=== PATIENT | male | born 1985 | race Caucasian/White ===

== ENCOUNTER 2016-09-17 14:16 | Emergency (ER) | payer OTHER ==
[~2016-09-17] VITALS: Ht 177.8 cm; Wt 123.4 kg
[~2016-09-17 14:16] MED LIST: ALLP100T PO; CYCL10TA45 PO; HYDR-3714 PO; LSNP20T PO; PRD20T PO; PRED20TA PO
[2016-09-17] MEDS ORDERED: NAPR220C46 PO (14:29)
[2016-09-17] MEDS ORDERED: HYDROcodone/APAP 7.5 MG/325 MG (LORTAB, LORCET PLUS) TABLET PO STA (15:12)
[2016-09-17] MEDS ORDERED: CYCLOBENZAPRINE 10 MG (FLEXERIL) TAB PO STA (15:12)
--- NOTE | 2016-09-17 15:21 | ED Back Pain ---
General Chief Complaint: Back Problems Stated Complaint: BACK PAIN Nursing Triage Note: patient reports back pain x 1.5 hours. denies injury or taking medication for pain Nursing Sepsis Screen: No Definite Risk History of Present Illness Time Seen by Provider: 15:00 Initial Comments Evaluation for acute onset of right lumbar back pain. The patient reports having similar symptoms approximately 2 years ago, he was evaluated here and had a CT scan that he done that showed disc changes at L5-S1. The patient reports no chronic problems with his low back. He denies any injury at the onset of his symptoms today. He denies any urinary or bowel incontinence or retention. Timing/Duration: 1-3 Hours Severity: Moderate (pain 7 out of 10) Pain/Injury Location: Back Method of Injury: Unknown Modifying Factors: Improves With Rest (and leaning to the left side) Associated Symptoms: muscle spasms, No numbness in legs/feet, No tingling in legs/feet, No sensory/motor loss, lower back pain, No loss of bladder control, No loss of bowel control Allergies and Home Medications Allergies Coded Allergies: No Known Drug Allergies (Unverified , 05/18/12) Home Medications Allopurinol 100 Mg Tab, 100 MG PO DAILY, (Reported) Cyclobenzaprine HCl 10 Mg Tablet, 10 MG PO Q8H PRN for SPASMS, #15 Ref 0 Prescribed by: ROMEO GARIBAY on 09/17/16 160 Hydrocodone/Acetaminophen 1 Each Tablet, 1 EACH PO Q6H PRN for PAIN, #12 Ref 0 Prescribed by: ROMEO GARIBAY on 09/17/161602 Lisinopril 20 Mg Tab, 20 MG PO DAILY, (Reported) Naproxen Sodium 220 Mg Capsule, 440 MG PO BID, (Reported) Prednisone 10 Mg Tab.ds.pk, 10 MG PO DAILY, #21 Take 6 tabs(60mg)daily,decrease by 1 tab(10MG)daily. Prescribed by: ROMEO GARIBAY on 09/17/161602 Constitutional: no symptoms reported, see HPI EENTM: no symptoms reported, see HPI Respiratory: no symptoms reported, see HPI Cardiovascular: no symptoms reported, see HPI Gastrointestinal: no symptoms reported, see HPI Genitourinary: no symptoms reported, see HPI Musculoskeletal: see HPI, back pain Skin: no symptoms reported, see HPI Psychiatric/Neurological: No Symptoms Reported, See HPI All Other Systems Reviewed Negative Unless Noted: Yes Past Yugeehb-Ngjrxh-Gvvyud Hx Patient Social History Alcohol Use: Rarely Uses Recreational Drug Use: No Smoking Status: Never a Smoker Type Used: Smokeless Tobacco Recent Foreign Travel: No Contact w/Someone Who Travel: No Recent Infectious Disease Expo: No Recent Hopitalizations: No Surgeries HX Surgeries: Yes (DENTAL) Respiratory Hx Respiratory Disorders: No Cardiovascular Hx Cardiac Disorders: Yes Cardiac Disorders: Hypertension Neurological Hx Neurological Disorders: No Genitourinary Hx Genitourinary Disorders: No Gastrointestinal Hx Gastrointestinal Disorders: No Musculoskeletal Hx Musculoskeletal Disorders: Yes Musculoskeletal Disorders: Gout Endocrine Hx Endocrine Disorders: No HEENT HX ENT Disorders: No Cancer Hx Cancer: No Family Medical History Significant Family History: No Pertinent Family Hx Physical Exam Vital Signs Vital Sign - Last 12Hours 09/17/16 14:27 Temp 98.2 Pulse 100 Resp 18 B/P (MAP) 112/85 Pulse Ox 92 Capillary Refill : Less Than 3 Seconds General Appearance: No Apparent Distress, WD/WN HEENT: PERRL/EOMI, TMs Normal, Normal ENT Inspection, Pharynx Normal Neck: Full Range of Motion, Normal Inspection, Non Tender, Supple Cardiovascular: Regular Rate, Rhythm, No Murmur, Normal Peripheral Pulses Respiratory: Chest Non Tender, Lungs Clear, Normal Breath Sounds Gastrointestinal: Normal Bowel Sounds, No Organomegaly, No Pulsatile Mass, Non Tender, Soft Back: Normal Inspection, No CVA Tenderness, Decreased Range of Motion, Muscle Spasm, Vertebral Tenderness (lower lumbar on the right side), Other (power V/V L4 to S1, positive straight leg raising sign on the right, Negative on the left.) Extremity: Normal Capillary Refill, Normal Inspection, Normal Range of Motion, Non Tender, No Calf Tenderness, No Pedal Edema Neurologic/Psychiatric: Alert, Oriented x3, No Motor/Sensory Deficits, Normal Mood/Affect Skin: Normal Color, Warm/Dry Lymphatic: No Adenopathy Progress/Results/Core Measures Results/Orders My Orders Orders - ROMEO GARIBAY Cyclobenzaprine Tablet (Flexeril Tablet) (09/17/16 15:12) Hydrocodone/Apap 7.5/325 Tab (Lortab 7. (09/17/16 15:12) Vital Signs/I&O Vital Sign - Last 12Hours 09/17/16 09/17/16 14:27 16:16 Temp 98.2 98.2 Pulse 100 100 Resp 18 18 B/P (MAP) 112/85 Pulse Ox 92 92 Blood Pressure Mean: 94 Progress Note : Time: 16:00 Progress Note Patient reports improved pain since taking the Flexeril and Lortab. Discussed plans for discharge to home, patient agreed with this. Departure Impression Impression: Primary Impression: Lumbar radiculopathy Additional Impression: Lumbar back pain Qualified Codes: M54.5 - Low back pain Departure-Patient Inst. Decision time for Depature: 15:20 Referrals: OVIDIO HDZ MD (PCP/Family) Primary Care Physician Patient Instructions: Low Back Pain (DC) Add. Discharge Instructions: All discharge instructions reviewed with patient and/or family. Voiced understanding. Rest for the back, no twisting or lifting. Return to emergency department for worsening symptoms, numbness or tingling in the lower extremities, bowel or bladder changes, or any new complaints. Scripts Hydrocodone/Acetaminophen (Hydrocodon -Acetaminophen 5-325) 1 Each Tablet 1 EACH PO Q6H Y for PAIN, #12 TAB 0 Refills Prov: ROMEO GARIBAY 09/17/16 Cyclobenzaprine HCl (Cyclobenzaprine HCl) 10 Mg Tablet 10 MG PO Q8H Y for SPASMS, #15 TAB 0 Refills Prov: ROMEO GARIBAY 09/17/16 Prednisone (Prednisone) 10 Mg Tab.ds.pk 10 MG PO DAILY, #21 PKG Take 6 tabs(60mg)daily,decrease by 1 tab(10MG)daily. Prov: ROMEO GARIBAY 09/17/16 Work/School Note: Work Release Form Date Seen in the Emergency Department: Sep 17, 2016 Return to Work: Sep 21, 2016 Restrictions: No Restrictions Copy Copies To 1: OVIDIO HDZ MD, AMY ARNP Sep 17, 2016 15:21
[2016-09-17] MEDS ORDERED: PRED10TA22 PO (16:03)
[2016-09-17] MEDS ORDERED: HYDR-3812 PO (16:03)
[2016-09-17] MEDS ORDERED: CYCL10TA9 PO (16:03)
[2016-09-17 16:16] VITALS: BP 112/85
== END 2016-09-17 16:16 | disposition home or self-care (01) ==
LOC: EDUNIT# 14:16 → ER 14:19
DX: M54.16 Radiculopathy, lumbar region (principal); I10 Essential (primary) hypertension
CPT/HCPCS: 99281

== ENCOUNTER 2020-08-15 19:15 | Emergency (ER) | payer SELFPAY ==
[~2020-08-15] VITALS: Ht 175.3 cm; Wt 136.1 kg
[~2020-08-15 19:15] MED LIST changes: +ACHD5005 PO; +CYCL10TA9 PO; +NAPR220C61 PO; +PRED10TA22 PO
--- NOTE | 2020-08-15 19:50 | ED Respiratory ---
General Stated Complaint: LOSS OF TASTE AND SMELL History of Present Illness Date Seen by Provider: Aug 15, 2020 Time Seen by Provider: 19:30 Initial Comments 35-year-old male presents for loss of taste and smell that occurred at dinner tonight. He states he has had some respiratory congestion and cough for a day or 2 but he associated it with the wind and allergies. He has no known exposure to COVID-19 and has not been tested previously. He denies any recent fevers, shortness of air, or chest pain. He reports normal appetite and activity level. No other complaints at this time. He did not receive a flu vaccine or the Covid vaccine. Timing/Duration: just prior to arrival Severity: mild Associated Symptoms: denies symptoms Allergies and Home Medications Allergies Coded Allergies: No Known Drug Allergies (Unverified , 05/18/12) Home Medications Allopurinol 100 Mg Tab, 100 MG PO DAILY, (Reported) Cyclobenzaprine HCl 10 Mg Tablet, 10 MG PO Q8H PRN for SPASMS Prescribed by: ROMEO GARIBAY on 09/17/16 1603 Hydrocodone Bit/Acetaminophen 1 Each Tablet, 1 EACH PO Q6H PRN for PAIN Prescribed by: ROMEO GARIBAY on 09/17/16 1603 Lisinopril 20 Mg Tab, 20 MG PO DAILY, (Reported) Naproxen Sodium 220 Mg Capsule, 440 MG PO BID, (Reported) Prednisone 10 Mg Tab.ds.pk, 10 MG PO DAILY Take 6 tabs(60mg)daily,decrease by 1 tab(10MG)daily. Prescribed by: ROMEO GARIBAY on 09/17/16 1603 Patient Home Medication List Home Medication List Reviewed: Yes Review of Systems Review of Systems Constitutional: no symptoms reported, see HPI EENTM: see HPI, other (Loss of taste and smell) Respiratory: see HPI, cough; No dyspnea on exertion, No short of breath Cardiovascular: no symptoms reported, see HPI; No chest pain Gastrointestinal: no symptoms reported, see HPI Genitourinary: no symptoms reported, see HPI All Other Systems Reviewed Negative Unless Noted: Yes Past Crcibqr-Urtyfe-Utojen Hx Past Med/Social Hx: Reviewed Nursing Past Med/Soc Hx Patient Social History Type Used: Smokeless Tobacco Recent Hopitalizations: No Past Medical History Hypertension Gout Family Medical History No Pertinent Family Hx Physical Exam Vital Signs - First Documented 08/15/20 19:30 Temp 36.7 Pulse 84 Resp 18 B/P (MAP) 132/94 (107) Pulse Ox 98 O2 Delivery Room Air Capillary Refill : Height: 5'10" Weight: 272lbs. oz. 123.523876bp; 39.02 BMI Method:Stated General Appearance: WD/WN, no apparent distress, obese Eyes: Bilateral Eye Normal Inspection, Bilateral Eye PERRL, Bilateral Eye EOMI HEENT: PERRL/EOMI, normal ENT inspection, TMs normal, pharynx normal Neck: non-tender, full range of motion, supple, normal inspection Respiratory: chest non-tender, lungs clear, normal breath sounds, no respiratory distress, no accessory muscle use Cardiovascular: normal peripheral pulses, regular rate, rhythm, no edema Gastrointestinal: normal bowel sounds, non tender, soft Neurologic/Psychiatric: no motor/sensory deficits, alert, normal mood/affect, oriented x 3 Skin: normal color, warm/dry Progress/Results/Core Measures Suspected Sepsis SIRS Temperature: Pulse: Respiratory Rate: Blood Pressure / Mean: Results/Orders Lab Results Laboratory Tests Test 08/15/20 19:30 Range/Units Coronavirus 2018 ([facility]USSEL) Positive H Negative Micro Results Microbiology 08/15/20 Influenza Types A,B Antigen (YAMIL) - Final, Complete My Orders Orders - ROMEO GARIBAY Influenza A And B Antigens (08/15/20 19:44) Coronavirus Sars-Cov-2 So 2018 (08/15/20 19:44) Covid 19 Inhouse Test (08/15/20 19:44) Rx-Oseltamivir Caps (Rx-Tamiflu Caps) (08/15/20 20:19) Vital Signs/I&O 08/15/20 08/15/20 19:30 19:30 Temp 36.7 Pulse 84 Resp 18 B/P (MAP) 132/94 (107) Pulse Ox 98 O2 Delivery Room Air Room Air Capillary Refill : Progress Note : Time: 19:30 Progress Note Patient seen and evaluated, will obtain Covid and flu testing. No other requests at this time. Patient is afebrile. 2020 patient is positive for COVID-19 and influenza B. Discharge instructions and return precautions reviewed with the patient in detail. All questions answered. Departure Impression Primary Impression: COVID-19 Additional Impression: Influenza B Disposition: 01 HOME, SELF-CARE Condition: Stable Departure-Patient Inst. Decision time for Depature: 20:20 Referrals: OVIDIO HDZ MD (PCP/Family) Primary Care Physician Patient Instructions: Coronavirus Disease 2019 (COVID-19) ED, Flu, Adult (DC) Add. Discharge Instructions: Increase water intake, 16 ounces every 2 hours while awake. Take Tamiflu as directed. You need to stay home and isolate from others until the health department releases you. Notify anyone that you have been in contact with for the last 48 hours to quarantine until they have been contacted by the health department. Take an immune vitamin daily, that has Vit C, D, and Zinc. Take an Aspirin 81 mg daily. Walk around and move frequently. Sleep on your stomach. Call your family doctor, if symptoms are not improving or worsen. Return to the emergency department for new, urgent healthcare needs. Work/School Note: Work Release Form Date Seen in the Emergency Department: Aug 15, 2020 Other Restrictions Listed Below: Return to work per Health Dept. Copy Copies To 1: OVIDIO HDZ MD LANIROMEO Ahmadi Aug 15, 2020 19:50
[2020-08-15] MEDS ORDERED: RX-OSELTAMIVIR 75 MG (TAMIFLU) BOX OF 10 PO STA (20:19)
[2020-08-15 20:45] VITALS: BP 135/93
== END 2020-08-15 20:45 | disposition home or self-care (01) ==
LOC: EDUNIT# 19:15 → ER 19:17
DX: U07.1 COVID-19 (principal); J10.1 Influenza due to other identified influenza virus with other respiratory manifestations; I10 Essential (primary) hypertension; M10.9 Gout, unspecified; Z79.52 Long term (current) use of systemic steroids
CPT/HCPCS: 87804; 99282; U0002; 87635

== ENCOUNTER 2022-07-22 12:15 | Emergency (ER) | payer SELFPAY ==
[~2022-07-22] VITALS: Ht 175 cm; Wt 156.0 kg
[~2022-07-22 12:15] MED LIST changes: +CYCL10TA25 PO; -CYCL10TA9 PO
--- NOTE | 2022-07-22 12:35 | ED General ---
General Chief Complaint: Allergic Reaction Stated Complaint: ALLERGIC REACTION Nursing Triage Note: PT ARRIVED PER EMS, PT RECIEVED SOLUMEDROL 125MG AND BENADRYL 50MG IV. PT CO OF SWELLING OF HANDS AND TONGUE. IMPROVED SINCE MEDS GIVEN BY EMS. PT WAS SEEN AT [facility] IN [place]. PT HAS SL IN [facility] BY EMS. NO RESP DISTESS NOTED. PT STATES FEELING BETTER Source of Information: Patient Exam Limitations: No Limitations History of Present Illness Date Seen by Provider: Jul 22, 2022 Time Seen by Provider: 12:34 Timing/Duration: 1 Hour Severity: Severe Associated Systoms: Other (change in speech) Allergies and Home Medications Allergies Coded Allergies: No Known Drug Allergies (Unverified , 05/18/12) Patient Home Medication List Allopurinol (Zyloprim) 100 Mg Tab, 100 MG PO DAILY, (Reported) Entered as Reported by: RENARD MADIRD on 05/18/12 1630 Cyclobenzaprine HCl (Cyclobenzaprine HCl) 10 Mg Tablet, 10 MG PO Q8H PRN for SPASMS Prescribed by: ROMEO GARIBAY on 09/17/16 1603 Hydrocodone Bit/Acetaminophen (Lortab 5 Mg Tablet) 1 Each Tablet, 1 EACH PO Q6H PRN for PAIN Prescribed by: ROMEO GARIBAY on 09/17/16 1603 Lisinopril (Zestril) 20 Mg Tab, 20 MG PO DAILY, (Reported) Entered as Reported by: RENARD MADRID on 05/18/12 1630 Naproxen Sodium (Naproxen Sodium) 220 Mg Capsule, 440 MG PO BID, (Reported) Entered as Reported by: MUSA SPRAGUE on 09/17/16 1429 Prednisone (Prednisone) 10 Mg Tab.ds.pk, 10 MG PO DAILY Prescribed by: ROMEO GARIBAY on 09/17/16 1603 Review of Systems Review of Systems Constitutional: see HPI EENTM: other (mouth and tongue swelling; voice change) Respiratory: no symptoms reported Cardiovascular: no symptoms reported Gastrointestinal: no symptoms reported Genitourinary: no symptoms reported All Other Systems Reviewed Negative Unless Noted: Yes Past Dujwsey-Xrpmov-Quqokx Hx Patient Social History Tobacco Use?: No Use of E-Cig and/or Vaping dev: No Substance use?: No Alcohol Use?: No Pt feels they are or have been: No Past Medical History Surgery/Hospitalization HX: HTN, GOUT Surgeries: Yes (DENTAL) Respiratory: No Cardiac: Yes Hypertension Neurological: No Gastrointestinal: No Musculoskeletal: Yes Gout Endocrine: No Cancer: No Family Medical History No Pertinent Family Hx Physical Exam Vital Signs Vital Signs - First Documented 07/22/22 12:20 Temp 36.8 Pulse 105 Resp 18 B/P (MAP) 181/110 (133) Pulse Ox 99 Capillary Refill : Height, Weight, BMI Height: 5'10" Weight: 272lbs. oz. 123.719007gc; 50.00 BMI Method:Stated General Appearance: No Apparent Distress, WD/WN Eyes: Bilateral Eye Normal Inspection, Bilateral Eye PERRL, Bilateral Eye EOMI HEENT: PERRL/EOMI, Other (mil-moderate tongue swelling and floor of the mouth edema; no uvular edema; no hoarseness; no lip swelling) Neck: Normal Inspection, Supple Respiratory: Lungs Clear, Normal Breath Sounds, No Accessory Muscle Use, No Respiratory Distress Cardiovascular: Regular Rate, Rhythm Gastrointestinal: Non Tender, Soft Extremity: Normal Range of Motion Neurologic/Psychiatric: Alert, Oriented x3, No Motor/Sensory Deficits, Normal Mood/Affect Skin: Normal Color, Warm/Dry Progress/Results/Core Measures Suspected Sepsis SIRS Temperature: Pulse: 105 Respiratory Rate: 18 Blood Pressure 181 /110 Mean: 133 Laboratory Tests 07/22/22 13:00: Creatinine 1.22 Results/Orders Lab Results Laboratory Tests Test 07/22/22 13:00 Range/Units Sodium Level 136 135-145 MMOL/L Potassium Level 4.3 3.6-5.0 MMOL/L Chloride Level 101 98-107 MMOL/L Carbon Dioxide Level 20 L 21-32 MMOL/L Anion Gap 15 H 5-14 MMOL/L Blood Urea Nitrogen 16 7-18 MG/DL Creatinine 1.22 0.60-1.30 MG/DL Estimat Glomerular Filtration Rate 78 BUN/Creatinine Ratio 13 Glucose Level 154 H 70-105 MG/DL Calcium Level 9.0 8.5-10.1 MG/DL My Orders Orders - RAHAT CHEN MD Basic Metabolic Panel (07/22/22 12:43) Vital Signs/I&O 07/22/22 12:20 Temp 36.8 Pulse 105 Resp 18 B/P (MAP) 181/110 (133) Pulse Ox 99 Capillary Refill : Blood Pressure Mean: 133 Progress Note : Time: 14:01 Departure Impression Primary Impression: Angioedema Qualified Codes: T78.3XXA - Angioneurotic edema, initial encounter Disposition: 01 HOME, SELF-CARE Condition: Improved Departure-Patient Inst. Decision time for Depature: 14:02 Referrals: OVIDIO HDZ MD (PCP/Family) Primary Care Physician Patient Instructions: Angioedema (DC) Add. Discharge Instructions: STOP TAKING THE LISINOPRIL. You should not take anymore medications that belong to this family of blood pressure medications. (John inhibitors). I have started you on Amlodipine. This is 10mg once a day. If you have any return of swelling or worsening whatsoever, please come back to the Emergency Department for re-evaluation. Scripts Amlodipine Besylate (Amlodipine Besylate) 10 Mg Tablet 10 MG PO DAILY for 30 Days, #30 TAB Prov: RAHAT CHEN MD 07/22/22 Work/School Note: Work Release Form Date Seen in the Emergency Department: Jul 22, 2022 Return to Work: Jul 23, 2022 RAHAT CHEN MD Jul 22, 2022 12:35
[2022-07-22 13:21] LABS: POTASSIUM 4.3 MMOL/L (3.6-5.0)
[2022-07-22 13:26] LABS: CREATININE SERUM 1.22 MG/DL (0.60-1.30)
[2022-07-22] MEDS ORDERED: AMLO-251 PO (14:02)
[2022-07-22 14:25] VITALS: BP 163/103
== END 2022-07-22 14:25 | disposition home or self-care (01) ==
LOC: EDUNIT# 12:15 → ER 12:17
DX: T78.3XXA Angioneurotic edema, initial encounter (principal)
CPT/HCPCS: 36415; 80048; 99283